=== PATIENT | male | born 1995 | race Caucasian/White ===

== ENCOUNTER 2016-09-29 13:35 | Emergency (ER) | payer OTHER ==
[~2016-09-29] VITALS: Ht 182.9 cm; Wt 77.2 kg
[2016-09-29 14:31] LABS: HEMATOCRIT 47.6 % (38.0-50.0); MCH 29.9 PG (29.0-34.0); MCHC 33.4 G/DL (30.0-36.0); MCV 89.6 FL (86-99); MEAN PLAT.VOLUME 11.7 uM^3 (9.0-12.4); PLATELET COUNT 209 K/uL (156-360); RBC DIS.WIDTH-CV 12.3 % (11.8-14.6); RBC DIS.WIDTH-SD 40.9 % (39-53); RED BLOOD COUNT 5.31 M/uL (4.00-5.50); WHITE BLOOD COUNT 10.6 K/uL (4.1-10.2)
[2016-09-29 14:33] LABS: ADD MIUA? NO; BILIRUBIN NEGATIVE; BLOOD NEGATIVE; COLOR YELLOW ((YELLOW)); GLUCOSE (STRIP) NEGATIVE; KETONES NEGATIVE; LEUKOCYTES NEGATIVE; NITRITE NEGATIVE; PROTEIN (STRIP) NEGATIVE; SPECIFIC GRAVITY 1.017 (1.000-1.030); UCUL ADDED? NO; UROBILINOGEN 0.2 MG/DL (0.2-1.0)
[2016-09-29 14:51] LABS: CHLORIDE 104 mEq/L (99-109); POTASSIUM 4.2 mEq/L (3.7-5.4); SODIUM 141 mEq/L (136-147)
[2016-09-29 14:54] LABS: GLUCOSE 92 mg/dL (70-99)
[2016-09-29 14:55] LABS: ANION GAP 9 MEQ/L (2-14)
[2016-09-29 14:56] LABS: TOTAL BILIRUBIN 0.6 mg/dL (0.0-1.0)
[2016-09-29 14:57] LABS: ALKALINE PHOSPHATASE 63 IU/L (3-129)
[2016-09-29 14:58] LABS: UREA NITROGEN (BUN) 10 mg/dL (9-23)
[2016-09-29 15:08] LABS: GFR ESTIMATE (CALCULATED) > 59 mL/min/
[2016-09-29] MEDS ORDERED: BENTYL20 MG PO (17:07)
[2016-09-29] MEDS ORDERED: TRAMADOL HCL50 MG PO (17:07)
[2016-09-29] MEDS ORDERED: FLAGYL500 MG PO (17:07)
[2016-09-29 17:28] VITALS: BP 136/80
== END 2016-09-29 17:30 | disposition home or self-care (01) ==
LOC: EME 13:35
PROVIDERS: Nurse Practitioner Family
DX: K52.9 Noninfective gastroenteritis and colitis, unspecified (principal); K92.2 Gastrointestinal hemorrhage, unspecified
CPT/HCPCS: 74177; 80053; 81003; 85027; 86850; 86900; 86901; 99281; 99284; J2405; J3010; J7030